=== PATIENT | male | born 1940 | race Hispanic/Latino ===

== ENCOUNTER 2019-07-07 09:00 | Day surgery (SDC) | payer MEDICARE ==
[~2019-07-07] VITALS: Ht 162.6 cm; Wt 63.5 kg
[~2019-07-07 09:00] MED LIST: INSU100I3 SQ; LISI10TA7 PO; METO-408 PO; METO25TA3 PO; OMEP40CA13 PO; SIMV40TA5 PO; SODIUM CHLORIDE 0.9% 1000ML 1,000 ML IV ONE; TELM80TA2 PO
[2019-07-07 10:15] VITALS: BP 112/79
[2019-07-07] MEDS ORDERED: DORZ10DR10 OP (10:28)
[2019-07-07] MEDS ORDERED: VITAMIN D3 PO (10:28)
[2019-07-07] MEDS ORDERED: PROPOFOL 10 MG/ML 20ML VIAL IV ONE (11:07)
[2019-07-07 12:12] VITALS: BP 100/39
[2019-07-07 12:17] VITALS: BP 101/46
[2019-07-07 12:22] VITALS: BP 95/35
== END 2019-07-07 12:55 | disposition home or self-care (01) ==
LOC: DAH 09:00
PROVIDERS: ATTEND Internal Medicine Gastroenterology
DX: D12.8 Benign neoplasm of rectum (principal); K26.3 Acute duodenal ulcer without hemorrhage or perforation; B96.81 Helicobacter pylori [H. pylori] as the cause of diseases classified elsewhere; K57.30 Diverticulosis of large intestine without perforation or abscess without bleeding; K29.50 Unspecified chronic gastritis without bleeding; I10 Essential (primary) hypertension; E78.5 Hyperlipidemia, unspecified; E11.9 Type 2 diabetes mellitus without complications; Z79.4 Long term (current) use of insulin; Z87.891 Personal history of nicotine dependence; Z79.899 Other long term (current) drug therapy
CPT/HCPCS: 43239; 45380; 45385; 82948 ×2; 88305; A4215; A4221; A4222; A4223; A4606; A4620; A4663; J2704; J7030